=== PATIENT | male | born 1955 | race Caucasian/White ===

== ENCOUNTER → 2021-11-27 | Outpatient (CLI) | payer BC ==
[2021-11-27 08:24] LABS: CLARITY URINE CLEAR (CLEAR); COLOR URINE DARK YELLOW (YELLOW); KETONES URINE NEGATIVE (NEGATIVE); LEUKOCYTE ESTERASE URINE NEGATIVE (NEGATIVE); NITRITE URINE NEGATIVE (NEGATIVE); OCCULT BLOOD URINE NEGATIVE (NEGATIVE); PROTEIN URINE 1+ (NEGATIVE); SPECIFIC GRAVITY URINE 1.027 (1.005-1.030); UROBILINOGEN URINE 0.2 E.U./dL (0.2-1.0)
[2021-11-27 08:34] LABS: CHLORIDE 106 mEq/L (98-107)
[2021-11-27 08:42] LABS: HDL CHOLESTEROL 46 mg/dL (40-59); LDL CHOLESTEROL 41 mg/dL (5-100)
[2021-11-28 06:12] LABS: *CREATININE RANDOM URINE 62.6 mg/dL (Not Estab.); MICROALBUMIN RANDOM URINE 170.7 ug/mL (Not Estab.)
== END | disposition home or self-care (01) ==
LOC: LAB 07:23
PROVIDERS: ATTEND Internal Medicine Endocrinology, Diabetes & Metabolism
DX: E11.22 Type 2 diabetes mellitus with diabetic chronic kidney disease (principal); N18.2 Chronic kidney disease, stage 2 (mild); E78.5 Hyperlipidemia, unspecified
CPT/HCPCS: 36415; 80053; 80061; 81003; 82043; 82570; 83036

== ENCOUNTER → 2022-04-04 | Outpatient (CLI) | payer MEDICARE, BC ==
[2022-04-04 09:04] LABS: BASOPHILS % 0.9 % (0.0-2.0); EOSINOPHILS % 3.6 % (0.0-5.0); HEMATOCRIT. 42.3 % (42.0-52.0); HEMOGLOBIN. 14.5 g/dL (14.0-18.0); LYMPHOCYTES % 27.3 % (20.0-50.0); MEAN CORPUSCULAR HEMOGLOBIN 29.9 pg (28.0-32.0); MEAN CORPUSCULAR VOLUME 87.4 fL (80.0-94.0); MEAN PLATELET VOLUME 10.3 fl (7.4-10.4); MONOCYTES % 9.3 % (2.0-8.0); NEUTROPHILS % 58.9 % (40.0-76.0); PLATELET 214 x1000/uL (130-400); RED BLOOD CELL COUNT 4.85 mill/uL (4.7-6.1); RED CELL DISTRIBUTION WIDTH 13.5 % (11.6-14.6)
[2022-04-04 09:13] LABS: CHLORIDE 105 mEq/L (98-107)
[2022-04-04 09:28] LABS: GAMMA GLUTAMYL TRANSPEPTIDASE 40 IU/L (11-50); HDL CHOLESTEROL 50 mg/dL (40-59); LDL CHOLESTEROL 51 mg/dL (5-100)
== END | disposition home or self-care (01) ==
LOC: LAB 07:23
DX: R97.20 Elevated prostate specific antigen [PSA] (principal); R79.89 Other specified abnormal findings of blood chemistry; E78.5 Hyperlipidemia, unspecified; E83.32 Hereditary vitamin D-dependent rickets (type 1) (type 2); R94.6 Abnormal results of thyroid function studies; R74.8 Abnormal levels of other serum enzymes; R68.89 Other general symptoms and signs
CPT/HCPCS: 36415; 80053; 80061; 82306; 82530; 82570; 82977; 83036; 83090; 84153; 84154; 84156; 84443; 84550; 84585; 85025; G0103

== ENCOUNTER → 2022-05-18 | Outpatient (CLI) | payer BC, MEDICARE ==
[2022-05-18 08:01] LABS: BASOPHILS % 1.2 % (0.0-2.0); EOSINOPHILS % 1.8 % (0.0-5.0); HEMATOCRIT. 42.2 % (42.0-52.0); HEMOGLOBIN. 14.2 g/dL (14.0-18.0); MEAN CORPUSCULAR HEMOGLOBIN 29.5 pg (28.0-32.0); MEAN CORPUSCULAR VOLUME 87.4 fL (80.0-94.0); MONOCYTES % 8.5 % (2.0-8.0); NEUTROPHILS % 67.5 % (40.0-76.0); PLATELET 241 x1000/uL (130-400); RED BLOOD CELL COUNT 4.82 mill/uL (4.7-6.1); RED CELL DISTRIBUTION WIDTH 13.6 % (11.6-14.6)
[2022-05-18 09:03] LABS: CHLORIDE 103 mEq/L (98-107)
[2022-05-18 09:24] LABS: HDL CHOLESTEROL 53 mg/dL (40-59); LDL CHOLESTEROL 49 mg/dL (5-100)
[2022-05-20 04:10] LABS: *CREATININE RANDOM URINE 93.2 mg/dL (Not Estab.); MICROALBUMIN RANDOM URINE 190.1 ug/mL (Not Estab.)
== END | disposition home or self-care (01) ==
LOC: LAB 07:22
PROVIDERS: ATTEND Internal Medicine Endocrinology, Diabetes & Metabolism
DX: E11.22 Type 2 diabetes mellitus with diabetic chronic kidney disease (principal); N18.2 Chronic kidney disease, stage 2 (mild); E78.5 Hyperlipidemia, unspecified
CPT/HCPCS: 36415; 80053; 80061; 82043; 82570; 82728; 83036; 85025

== ENCOUNTER → 2022-11-08 | Outpatient (CLI) | payer BC, MEDICARE | END | disposition home or self-care (01) | LOC: RAD 13:14 | DX: M19.09 Primary osteoarthritis, other specified site (principal); M25.48 Effusion, other site; M86.8X8 Other osteomyelitis, other site | CPT/HCPCS: 73660 ==